=== PATIENT | male | born 1965 | race Caucasian/White ===

== ENCOUNTER 2016-06-24 21:10 | Emergency (ER) | payer MEDICARE ==
[~2016-06-24 21:10] MED LIST: CARAFATE1 GM PO; COZAAR100 MG PO; DOLOPHINE DPS10 MG PO; DUONEB DPS3 ML IH; DURAGESIC DPS25 MCG TD; FLOMAX DPS0.4 MG PO; HCTZ12.5 MG PO; HUMULIN R500 UNIT/1 SQ; INSULIN; LEVAQUIN DPS500 MG PO; MAALOX DPS30 ML PO; MIRALAX17 GM PO; NEURONTIN DPS300 MG PO; NEURONTIN600 MG PO; PEPCID DPS20 MG PO; PRILOSEC DPS20 MG PO; SURFAK240 MG PO; THERAPEUTIC MUL1 TAB PO; TYLENOL DPS325 MG PO; ZOCOR DPS20 MG PO; [UNRECOGNIZED DRUG - OTHER] PO
--- NOTE | 2016-06-26 04:09 | ER ---
ADMIT: 06/24/2016 RM/LOC: ER [facility] MR#: [id number] [place], [place] [id number] [address] [place] [address] Emergency Room Report SEX: M AGE: 50 : 1965 DATE: 06/24/2016 TIME: 2109 Please refer to my T-sheet for complete H and P. HISTORY OF PRESENT ILLNESS: Briefly, the patient is a 50-year-old, comes in, has a known history of dependent stasis. His legs have been swollen. They are starting to get red. It has been going on about a week. He has not seen Dr. Victoria. He has appoint with him on Wednesday. I actually know this patient very well. 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 Sugars have been doing okay. Does not have a fever, so I think we are early in the case. PHYSICAL EXAMINATION: VITAL SIGNS: Stable. EXTREMITIES: Below the knees, he has 2+ edema with erythema diffusely, no severe breakdown. EMERGENCY DEPARTMENT COURSE: Uneventful. I gave him a dose of Bactrim, he is ready for discharge. ASSESSMENT: Bilateral lower extremity cellulitis. PLAN: Bactrim DS. Follow up with Julien at his appointment. Return if worse. Watch his sugars careful, and elevate. Joce Garza MD/ dannie JOB #: [id number] CC: Jose Ramon Victoria DO, Attending Physician
== END 2016-06-24 22:05 | disposition home or self-care (01) ==
LOC: ER 21:10
DX: L03.116 Cellulitis of left lower limb (principal); L03.115 Cellulitis of right lower limb; I10 Essential (primary) hypertension; E11.9 Type 2 diabetes mellitus without complications; Z88.0 Allergy status to penicillin; Z88.8 Allergy status to other drugs, medicaments and biological substances